=== PATIENT | male | born 1955 | race Caucasian/White ===

== ENCOUNTER 2021-03-24 07:13 | Outpatient (CLI) | payer OTHER | END 2021-03-24 07:32 | disposition home or self-care (01) | LOC: TOM 07:13 | PROVIDERS: ATTEND Internal Medicine Gastroenterology | DX: N20.0 Calculus of kidney (principal); K76.89 Other specified diseases of liver; K57.90 Diverticulosis of intestine, part unspecified, without perforation or abscess without bleeding; K43.9 Ventral hernia without obstruction or gangrene; K57.30 Diverticulosis of large intestine without perforation or abscess without bleeding; Z12.11 Encounter for screening for malignant neoplasm of colon ==

== ENCOUNTER 2021-06-04 07:07 | Outpatient (CLI) | payer OTHER | END 2021-06-04 07:16 | disposition home or self-care (01) | LOC: TOM 07:07 | PROVIDERS: ATTEND Surgery | DX: K76.0 Fatty (change of) liver, not elsewhere classified (principal); K43.2 Incisional hernia without obstruction or gangrene; K57.90 Diverticulosis of intestine, part unspecified, without perforation or abscess without bleeding | CPT/HCPCS: 74177; Q9965 ==